=== PATIENT | female | born 1975 | race Caucasian/White ===

== ENCOUNTER 2025-03-20 09:55 | Emergency (ER) | payer OTHER ==
[~2025-03-20] VITALS: Ht 160 cm; Wt 68.0 kg
[2025-03-20] MEDS ORDERED: Ipratropium/Albuterol SulF 2.5-0.5MG/3 ML Amp INH ONE (10:25)
[2025-03-20 11:49] LABS: CORONAVIRUS COVID-19 AG Negative (NEGATIVE); INFLUENZA A AG Negative (NEGATIVE); INFLUENZA B AG Negative (NEGATIVE)
[2025-03-20] MEDS ORDERED: RX Prepack Albuterol 1 PREPACK/6.7 GM INH UD ONE (12:00)
[2025-03-20] MEDS ORDERED: Cephalexin Monohydrate 500 MG Cap PO ONE (14:10)
[2025-03-20] MEDS ORDERED: CEPH500 PO (14:11)
== END 2025-03-20 14:37 | disposition home or self-care (01) ==
LOC: ER 09:55
PROVIDERS: Emergency Medicine
DX: J20.9 Acute bronchitis, unspecified (principal); J06.9 Acute upper respiratory infection, unspecified; L03.113 Cellulitis of right upper limb; Z11.52 Encounter for screening for COVID-19
CPT/HCPCS: 71046; 87428-QW; 93971; 94640; 94664; 99285-25; A9270